=== PATIENT | male | born 1995 | race Two or more races ===

== ENCOUNTER 2021-12-07 07:20 | Emergency (ER) | payer MEDICAID ==
[~2021-12-07] VITALS: Ht 180.3 cm; Wt 79.4 kg
--- NOTE | 2021-12-07 07:31 | NUR ---
BIB SELF C/O THROAT PAIN AND SWELLING X 2 DAYS. PT IS AFEBRILE, VITALS ARE WITHIN NORMAL LIMTIS. AWAITING MD HALE.
--- NOTE | 2021-12-07 07:54 | NUR ---
RAPID STREP SPECIMEN OBTAINED AND SENT TO LAB.
[2021-12-07] MEDS ORDERED: AMOXICILLIN TRIHYDRATE 500 MG CAPSULE PO ONE (08:00)
[2021-12-07] MEDS ORDERED: DEXAMETHASONE SOD PHOSPHATE 4 MG/ML VIAL IM ONE (08:00)
[2021-12-07] MEDS ORDERED: DEXAMETHASONE SOD PHOSPHATE 4 MG/ML VIAL ONE (08:01)
[2021-12-07] MEDS ORDERED: AMOXICILLIN TRIHYDRATE 250 MG CAPSULE ONE (08:02)
[2021-12-07] MEDS ORDERED: AMOX500T2 PO (08:07)
--- NOTE | 2021-12-07 08:12 | NUR ---
Patient discharged to home in stable condition. Written and verbal after care instructions given. Patient verbalizes understanding of instruction.
[2021-12-07 08:13] VITALS: BP 121/62
== END 2021-12-07 08:14 | disposition home or self-care (01) ==
LOC: ER 07:29
DX: J02.0 Streptococcal pharyngitis (principal); J45.909 Unspecified asthma, uncomplicated; Z60.2 Problems related to living alone
CPT/HCPCS: 87070 ×2; 87880; 96372; 99283; J1100; 86403-TC